=== PATIENT | male | born 1955 | race Caucasian/White ===

== ENCOUNTER → 2017-03-08 | Outpatient (CLI) | payer BC, OTHER ==
[~2017-03-08] VITALS: Ht 180.3 cm; Wt 98.0 kg
[~2017-03-08] MED LIST: CYMBALTA30 MG PO; METHYLPHENIDATE5 MG PO; MORPHABOND PO; MOVANTIK25 MG PO; NEURONTIN 300300 M1 PO; NUCYNTA ER150 MG PO; NUCYNTA75 MG PO; OXYCONTIN80 M1 PO; PERCOCET 10-321 EACH PO; RELPAX40 MG PO
--- NOTE | ~2017-03-08 | HPC ---
[facility] [place] [address] PAIN MANAGEMENT CONSULTATION Name: GERMAINE ZAMORA Room #: REG [facility] Sonja.#: [id number] Admission: 03/08/17 Attend Phys: Marquis Galeano DO Discharge: Date of : 55 Report #: [id number] THIS REPORT FOR: //name// CC: Marquis Martínez MD DATE OF SERVICE: 03/08/2017 DATE OF SERVICE: 03/08/2017. REFERRING PHYSICIAN: Dr. Gerard Martínez. CHIEF COMPLAINT: Bilateral upper extremity paresthesias. HISTORY OF PRESENT ILLNESS: As you know, the patient is an unfortunate 61-year-old male with longstanding history of bilateral upper extremity paresthesias for which he believes he suffers from complex regional pain syndrome. He has been treated with excessively high doses of opioids and is unwilling to make adjustments in his opioid therapy. We saw the patient in consultation per the request of Dr. Martínez where we attempted to place him on medication that is noted to be beneficial for neuropathic pain. The patient indicates that the medication was too costly and did not provide the efficacy noted with his oxycodone content. He subsequently returned to see Dr. Martínez who placed him on morphine and oxycodone. He returns today in followup visit discussing the lack of improvement with the morphine and oxycodone combination. He brings information today about experimental treatment being done in [place] for suspected complex regional pain syndrome. He is planning to head to [place] to undergo this procedure as they report a 98% cure rate. He returns today to discuss labs he needs drawn and his ongoing depression issues. ALLERGIES: No known drug allergies. CURRENT MEDICATIONS: Morphine 100 mg twice a day, Relpax 40 mg p.r.n., Movantik 25 mg per day, gabapentin 300 mg p.r.n., oxycodone 10/325 one tab every 6 hours p.r.n. for pain. SOCIAL HISTORY: The patient denies tobacco, alcohol, IV or illicit drug use. He is accompanied by his significant other who was supplying most of the discussion. IMAGING: No new imaging available. PHYSICAL EXAMINATION: VITAL SIGNS: Blood pressure 104/74, pulse 76, respiratory rate 16, unlabored. The patient 92% on room air. Height 5 feet 11 inches tall, weight 216 pounds, [place] [address] PAIN MANAGEMENT CONSULTATION Name: NOAHGERMAINE Room #: REG [facility]#: [id number] Admission: 03/08/17 Attend Phys: Marquis Galeano DO Discharge: Date of : 55 Report #: [id number] BMI calculated 30.1. GENERAL: Well developed, well nourished, well hydrated, depressed 61-year-old male, appears stated age. He is in no acute distress. He is awake, alert, oriented, he provides pain score 6/10. HEENT: Normocephalic, atraumatic. Pupils equal, round, reactive to light. Extraocular muscles are intact. Sclerae nonicteric without injection. NEUROLOGIC: Cranial nerves 2-12 grossly intact. Speech is fluent. EXTREMITIES: Show no clubbing, no cyanosis, no edema. MUSCULOSKELETAL: Upper extremity strength equal and symmetrical 5/5. He is intact to light touch from C5-T1 dermatomes. Deep tendinous reflexes are symmetrical at biceps, brachioradialis and triceps. There is no change in temperature. When comparing left to right side. There are no changes in the nail growth in either of the hands or changes in hair growth, typical of complex regional pain syndrome. ASSESSMENT: 1. Bilateral peripheral upper extremity neuropathy. 2. Bilateral upper extremity pain. 3. The patient reported complex regional pain syndrome. 4. Opioid dependency. 5. Chronic intractable pain. PLAN: 1. The patient returns today in followup visit having indicated that the tapentadol that was started for his neuropathic pain was "too costly". He also indicates that the medication does not provide much in the way of improvement in symptoms, though the patient was subsequently returned to see his primary care physician, Dr. Martínez who placed him on morphine 100 mg twice a day and provided him oxycodone 10/325 four times a day. The patient states that despite this elevated dose of medication nearly 2-1/2 times the recommended CDC guidelines chronic pain of 90 morphine equivalents a day. The patient is reporting no improvement. Unfortunately, at this time, I do not agree with opioid management in this patient's case to the extent that he is taking the medication. I indicated again today, I do not feel these are appropriate treatment option for complex regional pain syndrome and in fact has been shown to be ineffective for complex regional pain syndrome and he has noted this with this morphine and oxycodone combination. I will defer to the primary team as they wish to continue this medication but based on our years of experience with complex regional pain syndrome. This treatment option is not recommended. 2. The patient has information about experimental procedure in [place], they have contacted the attending physician who is providing 98% cure of complex regional pain syndrome. They are planning to travel to [place] undergo the procedure. They did need labs drawn today for this physician. We have provided the lab work for the patient requested. 3. The patient was provided a prescription of a complete metabolic panel and 25OH vitamin D level. The patient will obtain these labs as quickly as possible [facility] [address] [facility] [place] [address] PAIN MANAGEMENT CONSULTATION Name: GERMAINE ZAMORA Room #: REG [facility] Holder#: [id number] Admission: 03/08/17 Attend Phys: Marquis Galeano DO Discharge: Date of : 55 Report #: [id number] once the findings have been resulted he can then contact his [place] physician about the findings. 4. The patient is reporting some depression, apparently he was on Prozac in the past and advise the patient that serotonin reuptake inhibitors such as Prozac can take an extensive time to reach efficacy somewhere up to 6 weeks. 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 We have written for the patient #60 tablets of methylphenidate 5 mg dose no refills. 5. We did discuss the patient traditional treatment options handled through the [place]. We discussed neuropathic pain medications for which the patient states he cannot take and we discussed the spinal cord stimulator which is the gold standard treatment for complex regional pain syndrome in the [place]. He chose not to look at these options. 6. The patient will return to see his primary care physician. At this point, we have nothing more off for this patient in regards to treatment options. He is looking towards more experimental procedures. He will need to follow up with his PCP for continuation of medication therapy if he wishes to remain on opioid medications. <ELECTRONICALLY SIGNED> By: Marquis Galeano DO 03/09/17 0833 [id number] Marquis Galeano DO /nt
[2017-03-08 09:19] VITALS: BP 104/74
== END | disposition home or self-care (01) ==
LOC: PAIN 03-01 07:59
DX: G62.9 Polyneuropathy, unspecified (principal); G90.50 Complex regional pain syndrome I, unspecified; F11.20 Opioid dependence, uncomplicated; G89.29 Other chronic pain

== ENCOUNTER → 2019-09-18 | Outpatient (CLI) | payer BC, OTHER ==
[~2019-09-18] VITALS: Ht 180.3 cm; Wt 107.0 kg
[~2019-09-18] MED LIST changes: +DEPO-TESTO200 MG/1 M IM; +EXCEDRIN CAPLE1 EACH PO; +GEODON 80 MG CA80 MG PO; +KLONOPIN1 MG PO; +METHADONE HCL 110 M1 PO; +MULTIVITAMINS1 EAC7 PO; +PSEUDOEPHEDRIN120 M1 PO
[2019-09-18 13:39] VITALS: BP 146/99
--- NOTE | 2019-09-18 14:10 | NUR ---
Pain Clinic Assessment: 1. History of Osteoarthritis: DENIES History of Rheumatoid Arthritis: DENIES 2. Height: 5 ft. 11 in. 180.3 cm. Weight: 236.0 lb. oz. 107.049 kg. Patient's BMI: 32.9 3. Vital Signs: BP: 146/99 Pulse: 94 Resp: 16 Temp: 02 Sat: 95 ECG Mon: 4. Pain Intensity: 6 5. Fall Risk: Dizziness: N Needs help standing or walking: N Fallen in the last 3 months: N Fall risk comments: 6. Patient on Blood Thinner: None 7. History of Hypertension: N 8. Opioid Therapy greater than 6 weeks: Y Opiate Contract Signed: 9. Risk Assessment Tool Provided: DR UP 10. Functional Assessment Tool: 11. Recreational Drug Use: Never Drug Type: Tobacco Use: Never Smoker Tobacco Type: Amount or Packs/day: How Many Years: Alcohol Use: Yes Frequency: Monthly Quant:
--- NOTE | 2019-09-25 07:45 | HPC ---
[facility] [place] [address] PAIN MANAGEMENT CONSULTATION Name: GERMAINE ZAMORA Room [facility]: [facility] [id number] Admission: 09/18/19 Attend Phys: Marquis Galeano DO Discharge: Date of : 55 Report #: [id number] THIS REPORT FOR: cc: Gerard Martínez MD,Marquis Benito MD, DO ~ THIS REPORT FOR: //name// DATE OF SERVICE: 09/18/2019 REFERRING PHYSICIAN: Dr. Gerard Martínez. CHIEF COMPLAINT: Low back pain. HISTORY OF PRESENT ILLNESS: As you know, the patient is a 64-year-old male who has returned today in followup visit per the request of his primary care physician, Dr. Gerard Martínez to discuss his chronic midline back pain with bilateral sciatic symptoms. He recently underwent an MRI of the lumbar spine, which showed changes at the L4-L5 and L5-S1 level concerning enough that the patient was referred to our clinic to discuss options for treatment. The patient reports today pain level of 6/10. He describes his pain as burning and stabbing in sensation, exacerbated with lying down, walking, bending and improves with recliners and medications. He has been referred to our service to discuss treatment options for suspected lumbar radiculopathy. The patient indicates no injury or trauma that may have led to symptom development. He has had epidurals in the past for similar symptoms at [facility] with only transient improvement in symptoms lasting for no more than a week. He has trialled physical therapy, but does not participate in it on a daily basis. He has had a laminectomy in the lumbar spine, which improved his symptoms quite precipitously. He returns today per the request of Dr. Martínez to discuss treatment options for lumbar radiculopathy. ALLERGIES: No known drug allergies. CURRENT MEDICATIONS: Pseudoephedrine 120 mg 3 times a week p.r.n., Excedrin 2 tabs per day, acetaminophen 250 mg 4 per week, vitamin complexes 1 tab per day, Percocet 10/325 four tablets per day, methadone 10 mg 3 times a day, testosterone injected intramuscularly every week, clonazepam 1 mg 3 times a day, ziprasidone 80 mg twice a day. SOCIAL HISTORY: The patient denies tobacco, alcohol, IV or illicit drug use. He reports he is continuing to work, but is in the plans of retiring to [facility] with a trip planned on 10/01 to begin that process. He is accompanied by his [place] [address] PAIN MANAGEMENT CONSULTATION Name: GERMAINE ZAMORA Room #: REG [facility] Glory#: [id number] Admission: 09/18/19 Attend Phys: Marquis Galeano DO Discharge: Date of : 55 Report #: [id number] IMAGING: MRI lumbar spine obtained 09/06/2019 shows mild spondylitic changes at T12-L1, L1-L2 and L2-L3. At L3-L4, there is minimal disk bulge. The central canal is minimally reduced to 1 cm due to posterior lipomatosis. At L4-L5, there is moderately severe posterior facet degenerative changes with disk osteophyte complex extending into the foramen causing minimal left and mild right foraminal stenosis without impingement on the canal. Similar changes also noted at L5-S1. PHYSICAL EXAMINATION: VITAL SIGNS: Blood pressure 146/99, pulse 94, respiratory rate 16 and unlabored. The patient is 95% on room air. Height 5 feet 10 inches tall, weight 236 pounds, BMI calculated 32.9. GENERAL: Well-developed, well-nourished, well-hydrated 64-year-old male appearing stated age, pain is rated today 6/10. HEENT: Normocephalic, atraumatic. Pupils equal, round, reactive to light. Extraocular muscles are intact. Sclerae nonicteric without injection. NEUROLOGIC: Cranial nerves 2-12 grossly intact. Speech fluent. The patient deemed a good historian. LUNGS: Clear, no wheeze, rhonchi or rales. CARDIOVASCULAR: Regular. No appreciable gallop, no rub. ABDOMEN: Soft, mildly obese, normoactive bowel sounds. EXTREMITIES: Show no clubbing, no cyanosis, no edema. MUSCULOSKELETAL: Lower extremity strength appears symmetrical 5/5. He is intact to light touch from L1 through S2 dermatomes. Seated straight leg raising negative. Supine straight leg raising is equivocal. Lumbar provocation testing including extension, rotation, lateral flexion all intensify axial back pain. There is limited range of motion with forward flexion of the lumbar spine due to pain as well as pain generator with extension and rotation. He is noted to have equal and symmetrical lower extremity muscle bulk and tone. Deep tendon reflexes are symmetrical. ASSESSMENT: 1. Chronic lumbar radicular symptoms by report. 2. Lumbosacral spondylosis without current radiculopathy. 3. Facet arthropathy of the lumbar spine. 4. Chronic low back pain. PLAN: 1. Based on today's physical exam and history the patient has provided, the description the patient uses in regards to pain and location of symptoms, likely source of the patient's symptoms is the facet joints at the L4-L5 and L5-S1 level. MRI confirms facet degenerative changes at the L4-L5 and L5-S1 level, for which they use the terms moderately severe. He does have some foraminal stenosis, but this is only mild in nature and located at the L4-L5 and L5-S1 level. We discussed with the patient treatment options that we have available [facility] [address] [place] [address] PAIN MANAGEMENT CONSULTATION Name: NOAHGERMAINE H Room #: REG [facility] Holder#: [id number] Admission: 09/18/19 Attend Phys: Marquis Galeano DO Discharge: Date of : 55 Report #: [id number] to treat facet arthropathy pain and suspected lumbar radiculopathy. The following was discussed with the patient today. 2. We discussed physical therapy, stretching exercises and core strengthening as the gold standard of treatment for facet arthropathy pain. We discussed medication management utilizing neuropathic pain medication such as amitriptyline, nortriptyline, Cymbalta, Lyrica or gabapentin to treat neuropathic symptoms. We discussed lumbar epidural injections to address any lumbar radicular symptoms he may be experiencing. We also discussed intra-articular facet injections to address facet arthropathy pain and possibly even medial branch blocks progressing towards radiofrequency lesioning. The patient and I also discussed the surgical route to address the findings at the L4-L5 and L5-S1 level, though I do not feel he is an optimal surgical candidate as there are no specific findings in the MRI that would be resolved significantly with surgery. We had a very long discussion about these treatment options today; the following was what the patient had requested. 3. The patient is indicating that he has undergone epidural injections in the past for similar findings and he received at greatest 1 week of improvement in symptoms. He does not wish to undergo these injections again as he found no efficacy. We respect that decision as the findings of his MRI would indicate that epidural injections would provide little or no benefit as the patient is experiencing no radicular symptoms and there is no lateralizing features from the central canal neural foramen that would be consistent with the patient's symptoms. The patient is considering the possibility of intraarticular facet injections, but does not just want to have a "bandage" to solve his current problems; he wants a resolution that would provide consistent pain relief. I advised the patient that facet injections will not be that effective, it could improve his symptoms for a period of time, but ultimately his symptoms will return as we cannot change the arthritic changes that are there. We discussed medial branch nerve blocks from radiofrequency lesioning which might provide the patient with more improvement in symptoms, but certainly nothing that would indicate long-term treatment options of complete resolution of pain. This also require staging of the procedures which could take upwards of a month to month and a half to get approvals to undergo the process and to schedule the staging process of this injection series leading to RFA and the patient does not have time in his schedule to accommodate. We also discussed surgical options with the patient for which the patient has determined he wants to discuss with Surgery. 4. The patient will be following up with our clinic on an as needed basis for injections or discussions of other adjunctive treatments such as radiofrequency lesioning. The patient is considering his surgical options and will be following up with Dr. Martínez for referral to Neurosurgery. We will be more than willing to see the patient back in followup visit for injections, but the patient needs to understand that all options being provided through our services are to manage symptoms and do not resolve his symptoms completely. I wish to thank Dr. Martínez for the opportunity to see the patient again in [facility] [address] [place] [address] PAIN MANAGEMENT CONSULTATION Name: GERMAINE ZAMORA Room #: REG [facility] Sonja#: [id number] Admission: 09/18/19 Attend Phys: Marquis Galeano DO Discharge: Date of : 55 Report #: [id number] consultation. We are hopeful the information above will help direct his ongoing care and we will be available to see him back for injections, though at this point, the patient is not considering our treatment options as a course of treatment he would like to entertain, though if he does make a change in his decision processing and wishes to return to trial injections, he may do so. Again, we wish to thank you for the opportunity to see this patient in consultation. <ELECTRONICALLY SIGNED> By: Marquis Galeano DO 09/25/19 0745 [id number] Marquis Galeano DO /nt
== END ==
LOC: PAIN 06:55
DX: M47.27 Other spondylosis with radiculopathy, lumbosacral region (principal); G89.29 Other chronic pain; Z79.899 Other long term (current) drug therapy; Z79.891 Long term (current) use of opiate analgesic